=== PATIENT | male | born 1945 | race Caucasian/White ===

== ENCOUNTER 2021-12-09 21:47 | Emergency (ER) | payer OTHER, BC ==
[2021-12-09 21:54] VITALS: BP 119/72; PULSE 85; TEMP 98; BMI 28.5
[2021-12-09 22:54] LABS: EPI CELLS 11 /uL (0-25.1); HYALINE CASTS 0 /uL (0-3.1); PH,URINE 5.5 (5.0-8.0); URINE APPEARANCE CLEAR; URINE BACTERIA 11 /uL (0-1359); URINE BILIRUBIN NEGATIVE (NEGATIVE); URINE COLOR YELLOW; URINE GLUCOSE (UA) 3+ (NEGATIVE); URINE KETONE NEGATIVE (NEGATIVE); URINE LEUK ESTERASE NEGATIVE (NEGATIVE); URINE NITRITE NEGATIVE (NEGATIVE); URINE PROTEIN 1+ (NEGATIVE); URINE RBC 29 /uL (0-23.9); URINE UROBILINOGEN 0.2 mg/dL (0.2-1.0); URINE WBC 21 /uL (0-25.8)
[2021-12-09] MEDS ORDERED: NITROFURANTOIN MACROCRYSTAL 50 MG CAPSULE (FP) ONE (23:11)
[2021-12-09] MEDS ORDERED: NITROFURANTOIN MACROCRYSTAL 50 MG CAPSULE (FP) PO SCH (23:15)
== END 2021-12-09 23:25 | disposition home or self-care (01) ==
LOC: JER 21:47
DX: R33.9 Retention of urine, unspecified (principal)
CPT/HCPCS: 81003; 87086; 99283-25

== ENCOUNTER 2023-01-30 09:35 | Emergency (ER) | payer OTHER, BC ==
[2023-01-30 09:43] VITALS: TEMP 98.4; BMI 29.4
[2023-01-30 11:50] LABS: BASO % 0.7 % (0-2.0); EOS % 1.5 % (0-4.5); HEMATOCRIT 39.1 % (35.4-49); HEMOGLOBIN 12.8 GM/dL (11.7-16.9); LYMPH % 16.6 % (8-40); MCH 29.5 pg (25.7-33.7); MCHC 32.8 g/dl (32.0-35.9); MONO % 8.8 % (3.8-10.2); NEUT % 72.4 % (42.8-82.8); PLATELET COUNT 170 10^3/uL (134-434); RBC 4.34 M/mm3 (4.00-5.60); RDW 15.4 % (11.9-15.9); WHITE BLOOD COUNT 5.3 K/mm3 (4.0-10.0)
[2023-01-30 12:02] LABS: CHLORIDE 100 mmol/L (98-107); POTASSIUM 3.9 mmol/L (3.5-5.1); SODIUM 138 mmol/L (136-145)
[2023-01-30 12:03] LABS: EPI CELLS 1 /uL (0-25.1); HYALINE CASTS 0 /uL (0-3.1); PH,URINE 7.5 (5.0-8.0); URINE APPEARANCE CLOUDY; URINE BACTERIA >9,000 /uL (0-1359); URINE BILIRUBIN NEGATIVE (NEGATIVE); URINE COLOR YELLOW; URINE KETONE NEGATIVE (NEGATIVE); URINE LEUK ESTERASE 2+ (NEGATIVE); URINE NITRITE POSITIVE (NEGATIVE); URINE PROTEIN 2+ (NEGATIVE); URINE RBC 33 /uL (0-23.9); URINE UROBILINOGEN 0.2 mg/dL (0.2-1.0); URINE WBC 2489 /uL (0-25.8)
[2023-01-30 12:04] LABS: ALBUMIN 3.3 g/dl (3.4-5.0); ANION GAP 9 MMOL/L (8-16); CALCIUM 8.7 mg/dL (8.5-10.1); CO2 29 mmol/L (21-32)
[2023-01-30 12:05] LABS: BLOOD UREA NITROGEN 33.7 mg/dL (7-18)
[2023-01-30 12:07] LABS: CREATININE 2.2 mg/dL (0.55-1.3); SGPT/ALT 20 U/L (13-61)
[2023-01-30 12:08] LABS: SGOT/AST 12 U/L (15-37)
[2023-01-30 12:09] LABS: BILIRUBIN,TOTAL 0.6 mg/dL (0.2-1); TOT PROT 6.4 g/dl (6.4-8.2)
[2023-01-30 12:10] LABS: ALK PHOS 87 U/L (45-117)
[2023-01-30 12:12] LABS: GLUCOSE,RANDOM 429 mg/dL (74-106)
[2023-01-30] MEDS ORDERED: SODIUM CHLORIDE 0.9% 500 ML INFUS.BAG IV ONE (12:17)
[2023-01-30] MEDS ORDERED: CEFTRIAXONE 1,000 MG in DEXTROSE 5%-WATER - 50 ML IVPB ONE (12:17)
[2023-01-30] MEDS ORDERED: CEFTRIAXONE 1 GM/50 ML BAG ONE (12:30)
[2023-01-30] MEDS ORDERED: CIPROFLOXACIN 500 MG TABLET (RESTRICTED TO ID) PO ONE (15:24)
[2023-01-30 16:11] VITALS: BP 107/90; PULSE 74; RESP 20
[2023-01-31 08:03] LABS: URINE GLUCOSE (UA) 3+ (NEGATIVE)
== END 2023-01-30 16:11 | disposition left against medical advice (07) ==
LOC: JER 09:35
DX: R53.1 Weakness (principal); R11.0 Nausea; R19.7 Diarrhea, unspecified; R53.83 Other fatigue; N39.0 Urinary tract infection, site not specified
CPT/HCPCS: 36415; 71046-TC-FY; 80053; 81003; 83036; 85025; 87086; 87186; 93005; 93010; 99285-25

== ENCOUNTER 2023-10-11 08:40 | Emergency (ER) | payer OTHER, BC ==
[2023-10-11 08:53] VITALS: RESP 20; BMI 28.7
[2023-10-11 10:36] LABS: BASO % 0.6 % (0-2.0); EOS % 0.5 % (0-4.5); HEMATOCRIT 40.4 % (35.4-49); LYMPH % 18.2 % (8-40); MCH 31.2 pg (25.7-33.7); MCHC 34.8 g/dl (32.0-35.9); MEAN CELL VOLUME 89.6 fl (80-96); MEAN PLT VOLUME 7.2 fl (7.5-11.1); MONO % 8.6 % (3.8-10.2); NEUT % 72.1 % (42.8-82.8); PLATELET COUNT 208 10^3/uL (134-434); RBC 4.51 M/mm3 (4.00-5.60); RDW 16.4 % (11.9-15.9); WHITE BLOOD COUNT 6.8 K/mm3 (4.0-10.0)
[2023-10-11 10:53] LABS: POTASSIUM 3.2 mmol/L (3.5-5.1)
[2023-10-11 10:55] LABS: CALCIUM 9.3 mg/dL (8.5-10.1)
[2023-10-11 10:56] LABS: ALBUMIN 3.3 g/dl (3.4-5.0); BLOOD UREA NITROGEN 29.1 mg/dL (7-18); MAGNESIUM 2.3 mg/dL (1.8-2.4)
[2023-10-11 10:59] LABS: CREATININE 1.7 mg/dL (0.55-1.3)
[2023-10-11 11:00] LABS: BILIRUBIN,TOTAL 0.7 mg/dL (0.2-1); TOT PROT 6.4 g/dl (6.4-8.2)
[2023-10-11] MEDS ORDERED: POTASSIUM CHLORIDE ORAL LIQUID 20 MEQ/15 ML ONE (11:47)
[2023-10-11] MEDS ORDERED: TRIMETHOBENZAMIDE HCL 200MG/2ML INJ IM ONE (11:47)
[2023-10-11] MEDS ORDERED: MAG HYDROX/AL HYDROX/SIMETH 30 ML UNIT-DOSE CUP ONE (11:47)
[2023-10-11] MEDS ORDERED: FAMOTIDINE 20 MG/50 ML IVPB 20 MG/50 ML MG IVPB ONE (11:48)
[2023-10-11] MEDS ORDERED: KCL 10 MEQ IVPB 10 MEQ/100 ML INFUS.BAG IVPB ONE ×3 (11:48→15:46)
[2023-10-11] MEDS: KCL 10 MEQ IVPB 10 MEQ/100 ML INFUS.BAG IVPB SCH (12:20)
[2023-10-11] MEDS: FAMOTIDINE 20 MG/50 ML IVPB 20 MG/50 ML MG IVPB ONE (12:20)
[2023-10-11] MEDS: TRIMETHOBENZAMIDE HCL 200MG/2ML INJ IM ONE (12:20)
[2023-10-11] MEDS: MAG HYDROX/AL HYDROX/SIMETH 30 ML UNIT-DOSE CUP PO ONE (12:20)
[2023-10-11] MEDS: POTASSIUM CHLORIDE ORAL LIQUID 20 MEQ/15 ML PO ONE (12:20)
[2023-10-11 14:57] VITALS: BP 137/77; PULSE 84; TEMP 98.1
== END 2023-10-11 17:46 | disposition home or self-care (01) ==
LOC: JER 08:40
PROC: 3E033GC Introduction of Other Therapeutic Substance into Peripheral Vein, Percutaneous Approach (ICD-10-PCS; principal; 2023-10-11)
PROC: 3E023GC Introduction of Other Therapeutic Substance into Muscle, Percutaneous Approach (ICD-10-PCS; 2023-10-11)
DX: R11.2 Nausea with vomiting, unspecified (principal)
CPT/HCPCS: 36415; 71046-TC-FY; 80053; 83690; 83735; 84484; 85025; 93005; 93010; 99285-25

== ENCOUNTER 2024-09-22 10:56 | Inpatient (IN) | payer OTHER, BC ==
[2024-09-22 12:45] VITALS: BMI 26.5
[2024-09-22 13:14] LABS: URINE APPEARANCE CLOUDY; URINE BILIRUBIN NEGATIVE (NEGATIVE); URINE COLOR YELLOW; URINE GLUCOSE (UA) NEGATIVE (NEGATIVE); URINE KETONE NEGATIVE (NEGATIVE)
[2024-09-22 13:15] LABS: URINE LEUK ESTERASE 3+ (NEGATIVE); URINE NITRITE NEGATIVE (NEGATIVE); URINE PROTEIN 2+ (NEGATIVE); URINE UROBILINOGEN 0.2 mg/dL (0.2-1.0)
[2024-09-22 13:17] LABS: INR 1.15 (0.83-1.09); PROTHROMBIN TIME (PATIENT) 12.7 SEC (9.7-13.0)
[2024-09-22 13:20] LABS: ACTIVATED PTT 29.7 SECONDS (25.2-36.5)
[2024-09-22 13:43] LABS: ABSOLUTE IMMATURE GRANULOCYTES 0.03 x10^3/uL (0.0-0.031); BASOPHILS # 0.02 x10^3/uL (0.01-0.08); EOSINOPHIL % 1.2 % (0.8-7.0); HEMATOCRIT 35.6 % (40.1-51.0); HEMOGLOBIN 12.1 g/dL (13.7-17.5); MEAN CELL VOLUME 89.7 fl (79.0-92.2); MEAN PLT VOLUME 8.8 fl (9.4-12.4); MONOCYTE # 0.52 x10^3/uL (0.30-0.82); MONOCYTE % 6.2 % (5.3-12.2); PLATELET COUNT 212 x10^3/uL (163-337); RDW 13.1 % (12.6-16.6)
[2024-09-22 13:46] LABS: CHLORIDE 97 mmol/L (98-107); SODIUM 137 mmol/L (136-145)
[2024-09-22 13:48] LABS: ALBUMIN 2.4 g/dl (3.4-5.0); ANION GAP 10 mmol/L (4-13); BLOOD UREA NITROGEN 54.4 mg/dL (7-18); CALCIUM 7.8 mg/dL (8.5-10.1); CO2 31 mmol/L (21-32); GLUCOSE,RANDOM 100 mg/dL (74-106); MAGNESIUM 2.9 mg/dL (1.8-2.4); POTASSIUM 2.6 mmol/L (3.5-5.1)
[2024-09-22 13:51] LABS: CREATININE 2.3 mg/dL (0.55-1.3); SGOT/AST 31 U/L (15-37); SGPT/ALT 37 U/L (13-61)
[2024-09-22 13:53] LABS: BILIRUBIN,TOTAL 0.7 mg/dL (0.2-1); TOT PROT 5.9 g/dl (6.4-8.2)
[2024-09-22 13:54] LABS: ALK PHOS 101 U/L (45-117)
[2024-09-22 13:56] LABS: N-TERMINAL BNP 1652.7 pg/ml (5-450)
[2024-09-22] MEDS ORDERED: CEFTRIAXONE 1 G/50 ML PREMIX 50 ML IVPB ONE ×2 (13:56→17:33)
[2024-09-22] MEDS: SODIUM CHLORIDE 0.9% 500 ML INFUS.BAG IV ONE (14:39)
[2024-09-22] MEDS ORDERED: POTASSIUM CHLORIDE ORAL LIQUID 20 MEQ/15 ML ONE ×2 (15:12→22:11)
[2024-09-22] MEDS: POTASSIUM CHLORIDE ORAL LIQUID 20 MEQ/15 ML PO ONE (15:17)
[2024-09-22] MEDS: KCL 10 MEQ IVPB 10 MEQ/100 ML INFUS.BAG IVPB SCH ×2 (15:30→17:28)
[2024-09-22] MEDS ORDERED: KCL 10 MEQ IVPB 10 MEQ/100 ML INFUS.BAG IVPB ONE (15:31)
[2024-09-22] MEDS ORDERED: ALBUTEROL SO4 HFA INHALER IH PRN (15:39)
[2024-09-22] MEDS: POTASSIUM CHLORIDE ORAL LIQUID 20 MEQ/15 ML PO SCH (16:51)
[2024-09-22] MEDS: CEFTRIAXONE 1,000 MG in DEXTROSE 5%-WATER - 50 ML IVPB ONE (17:14)
[2024-09-22] MEDS ORDERED: ENOXAPARIN NA (PORCINE) 80 MG/0.8 ML DISP.SYRIN SQ ONE (17:19)
[2024-09-22] MEDS: ENOXAPARIN NA (PORCINE) 80 MG/0.8 ML DISP.SYRIN SQ ONE (17:28)
[2024-09-22 17:48] LABS: POTASSIUM 3.1 mmol/L (3.5-5.1)
[2024-09-22 17:50] LABS: BLOOD UREA NITROGEN 52.8 mg/dL (7-18); CALCIUM 7.2 mg/dL (8.5-10.1)
[2024-09-22] MEDS: CEFTRIAXONE 1 G/50 ML PREMIX 50 ML IVPB ONE (17:50)
[2024-09-22 17:54] LABS: CREATININE 2.2 mg/dL (0.55-1.3)
[2024-09-22] MEDS ORDERED: ROSUVASTATIN CA 20 MG TABLET ONE (21:45)
[2024-09-22] MEDS: predniSONE 5 MG TABLET (UD) PO SCH (22:07)
[2024-09-22] MEDS: ROSUVASTATIN CA 20 MG TABLET PO SCH (22:07)
[2024-09-22] MEDS: CARVEDILOL 12.5 MG TABLET (FP) PO SCH (22:08)
[2024-09-22] MEDS: DRONEDARONE HCL 400 MG TAB (FP) PO SCH (22:15)
[2024-09-22] MEDS: HEPARIN NA (PORCINE) 5,000 UNITS/ML 1ML VIAL SQ SCH (23:31)
[2024-09-23 07:07] LABS: ABSOLUTE IMMATURE GRANULOCYTES 0.02 x10^3/uL (0.0-0.031); BASOPHILS # 0.01 x10^3/uL (0.01-0.08); EOSINOPHIL % 0.5 % (0.8-7.0); EOSINOPHILS # 0.03 x10^3/uL (0.04-0.54); HEMATOCRIT 33.4 % (40.1-51.0); HEMOGLOBIN 11.2 g/dL (13.7-17.5); MCHC 33.5 g/dl (32.3-36.5); MEAN PLT VOLUME 8.9 fl (9.4-12.4); MONOCYTE # 0.48 x10^3/uL (0.30-0.82); PLATELET COUNT 207 x10^3/uL (163-337); RDW 13.3 % (12.6-16.6)
[2024-09-23 07:27] LABS: MAGNESIUM 2.9 mg/dL (1.8-2.4)
[2024-09-23 07:28] LABS: ALBUMIN 2.1 g/dl (3.4-5.0); BLOOD UREA NITROGEN 52.6 mg/dL (7-18)
[2024-09-23 07:30] LABS: CREATININE 2.2 mg/dL (0.55-1.3)
[2024-09-23 07:31] LABS: BILIRUBIN,TOTAL 0.4 mg/dL (0.2-1)
[2024-09-23 07:32] LABS: TOT PROT 5.3 g/dl (6.4-8.2)
[2024-09-23] MEDS ORDERED: CEFTRIAXONE 1 G/50 ML PREMIX 50 ML IVPB SCH (10:00)
[2024-09-23] MEDS: NAPH,MB-DB/K PH,MBDB POWDER PACKET PO ONE (10:22)
[2024-09-23] MEDS: TAMSULOSIN HCL 0.4 MG CAP PO SCH (10:22)
[2024-09-23] MEDS: CEFTRIAXONE 1 G/50 ML PREMIX 50 ML IVPB SCH (10:22)
[2024-09-23] MEDS: FLUTICASONE/UMECLIDIN/VILANTER(100-62.5-25 TRELEGY ELLIPTA) INAHLER IH SCH (10:23)
[2024-09-23] MEDS: TRIMETHOBENZAMIDE HCL 200MG/2ML INJ IM ONE (20:39)
[2024-09-23] MEDS: METOCLOPRAMIDE HCL INJECTION 10 MG/2 ML VIAL IVPUSH ONE (22:52)
[2024-09-23] MEDS: FAMOTIDINE 20 MG/50 ML IVPB 20 MG/50 ML MG IVPB ONE (22:53)
[2024-09-23] MEDS: LACTATED RINGERS SOLUTION 1,000 ML/1,000 ML INFUS.BAG IV SCH (22:53)
[2024-09-24 06:51] VITALS: RESP 18
[2024-09-24 07:32] LABS: ABSOLUTE IMMATURE GRANULOCYTES 0.01 x10^3/uL (0.0-0.031); BASOPHILS # 0.02 x10^3/uL (0.01-0.08); EOSINOPHIL % 1.8 % (0.8-7.0); EOSINOPHILS # 0.07 x10^3/uL (0.04-0.54); HEMATOCRIT 31.3 % (40.1-51.0); HEMOGLOBIN 10.2 g/dL (13.7-17.5); MCHC 32.6 g/dl (32.3-36.5); MEAN CELL VOLUME 93.7 fl (79.0-92.2); MONOCYTE # 0.33 x10^3/uL (0.30-0.82); MONOCYTE % 8.3 % (5.3-12.2); PLATELET COUNT 197 x10^3/uL (163-337); RDW 13.5 % (12.6-16.6)
[2024-09-24 07:55] LABS: CHLORIDE 104 mmol/L (98-107); POTASSIUM 4.4 mmol/L (3.5-5.1); SODIUM 137 mmol/L (136-145)
[2024-09-24 08:01] LABS: ANION GAP 5 mmol/L (4-13); BLOOD UREA NITROGEN 44.4 mg/dL (7-18); CO2 28 mmol/L (21-32); GLUCOSE,RANDOM 214 mg/dL (74-106); MAGNESIUM 2.6 mg/dL (1.8-2.4)
[2024-09-24 08:04] LABS: CREATININE 1.9 mg/dL (0.55-1.3); PHOSPHOROUS 2.2 mg/dL (2.5-4.9)
[2024-09-24 08:16] LABS: CALCIUM 6.7 mg/dL (8.5-10.1)
[2024-09-24] MEDS: NAPH,MB-DB/K PH,MBDB POWDER PACKET PO ONE (09:58)
[2024-09-24] MEDS: INSULIN GLARGINE (LANTUS) 100 UNITS/ML UNITS SQ ONE (09:59)
[2024-09-24] MEDS: CALCIUM (OYSTER SHELL) 500 MG TABLET (FP) PO SCH (13:15)
[2024-09-24 15:38] VITALS: BP 118/73; PULSE 61; TEMP 98.2
[2024-09-25] MEDS ORDERED: INSULIN GLARGINE (LANTUS) 100 UNITS/ML UNITS SQ SCH (07:00)
== END 2024-09-24 16:51 | disposition home or self-care (01) | DRG 690 ==
LOC: JER 10:56 → JERBED 21:53 → J4S 22:59
PROVIDERS: ADMIT Internal Medicine; ATTEND Internal Medicine
DX: N39.0 Urinary tract infection, site not specified (principal); I48.92 Unspecified atrial flutter; C79.51 Secondary malignant neoplasm of bone; E87.6 Hypokalemia; C61 Malignant neoplasm of prostate; I12.9 Hypertensive chronic kidney disease with stage 1 through stage 4 chronic kidney disease, or unspecified chronic kidney disease; E11.22 Type 2 diabetes mellitus with diabetic chronic kidney disease; N18.9 Chronic kidney disease, unspecified; I25.10 Atherosclerotic heart disease of native coronary artery without angina pectoris; R91.1 Solitary pulmonary nodule; D64.9 Anemia, unspecified; J44.9 Chronic obstructive pulmonary disease, unspecified
CPT/HCPCS: 36415; 71250-TC; 80048; 80053; 81003; 82550; 82962; 83036; 83735; 83880; 84100; 84484; 85025; 85379; 85610; 85730; 87086; 87186; 93005; 93010; 93306-TC; 93970-TC; 97116-GP; 97161-GP; 99285-25; J1644